=== PATIENT | female | born 1970 ===

== ENCOUNTER 2025-01-04 11:15 | Outpatient (REF) | payer MEDICAID, SELFPAY ==
--- NOTE | 2025-01-04 08:45 | PAPFT_PTH ---
PATIENT: Simona Taylor LOC: [facility]#:[id number] AGE/SX: 54/F ROOM: RE01/04/[address]: SHERRI: 1970 BED: DIS: 01/04/2025 SPEC #: [id number] RECD: 01/04/25 17:32 STATUS: PARTH PINA #: [id number] TURNER: 01/04/25 08:[address]: Parris Keller DEPT: [facility] Cytology RECD BY: Thu Pickard Tissues: 1 - CX/ENDOCX FOR PAP SMEARS Procedures: PAP THIN PREP/[facility] Screening HPV DNA PROBE Comments: [id number] (HPV 16 & 18/45)
== END 2025-01-04 11:16 | disposition home or self-care (01) ==
LOC: NCHCN 11:15
PROVIDERS: PCP Family Medicine; Visit Provider Family Medicine
DX: Z11.51 Encounter for screening for human papillomavirus (HPV) (principal); Z97.5 Presence of (intrauterine) contraceptive device; Z01.419 Encounter for gynecological examination (general) (routine) without abnormal findings; R87.618 Other abnormal cytological findings on specimens from cervix uteri
CPT/HCPCS: 88142; 87624